=== PATIENT | male | born 1965 | race Caucasian/White ===

== ENCOUNTER → 2023-04-23 07:38 | Outpatient (REF) | payer OTHER, SELFPAY ==
[2023-04-23 10:11] LABS: Hepatitis B Surface Antibody Positive
== END ==
LOC: OHS 07:38
PROVIDERS: ATTENDING PHYSICIAN Nurse Practitioner Family
DX: Z23 Encounter for immunization (principal)
CPT/HCPCS: 36415; 86706

== ENCOUNTER 2024-06-02 11:36 | Emergency (ER) | payer OTHER, SELFPAY ==
[2024-06-02 11:41] VITALS: BP 117/79
[2024-06-02 11:47] LABS: Glucose - Point of Care 152 mg/dl (70-99)
[2024-06-02 12:03] VITALS: BP 119/76; BMI 38.4
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
== END 2024-06-02 13:36 | disposition left against medical advice (07) ==
LOC: EMR 11:36
PROVIDERS: EMERGENCY PHYSICIAN Emergency Medicine; FAMILY PHYSICIAN Internal Medicine
DX: R00.0 Tachycardia, unspecified (principal); I10 Essential (primary) hypertension; E78.5 Hyperlipidemia, unspecified; J45.909 Unspecified asthma, uncomplicated; Z94.7 Corneal transplant status
CPT/HCPCS: 99284; 82962; 93005

== ENCOUNTER 2024-12-03 14:10 | Emergency (ER) | payer OTHER, SELFPAY ==
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
[2024-12-03] MEDS: ADACEL 0.5 ML IM (15:07)
== END 2024-12-03 15:08 | disposition home or self-care (01) ==
LOC: EMR 14:10
PROVIDERS: EMERGENCY PHYSICIAN Emergency Medicine; FAMILY PHYSICIAN Internal Medicine
DX: S00.01XA Abrasion of scalp, initial encounter (principal); Y09 Assault by unspecified means; Z23 Encounter for immunization; J45.909 Unspecified asthma, uncomplicated; I10 Essential (primary) hypertension
CPT/HCPCS: 99282; 90471; 90715